=== PATIENT | female | born 1950 | race Caucasian/White ===

== ENCOUNTER 2017-11-29 08:00 | Outpatient (RCR) | payer MEDICARE | END 2017-12-07 | LOC: OT 08:00 | PROVIDERS: ATTEND Surgery Surgery of the Hand | DX: S52.552D Other extraarticular fracture of lower end of left radius, subsequent encounter for closed fracture with routine healing (principal); M25.532 Pain in left wrist; M25.632 Stiffness of left wrist, not elsewhere classified; R53.1 Weakness | CPT/HCPCS: 97022 ×3; 97110 ×3; 97165; G8987; G8988 ==